=== PATIENT | male | born 1965 | race Caucasian/White ===

== ENCOUNTER 2017-02-15 18:55 | Emergency (ER) | payer BC, MEDICAID ==
[2017-02-15] MEDS ORDERED: cloNIDine 0.1 MG Tab PO ONE (19:18)
--- NOTE | 2017-02-15 19:26 | EDM.PDOC ---
ED HPI GENERAL MEDICAL PROBLEM - General Chief Complaint: General Stated Complaint: fatigue, light headed Time Seen by Provider: 02/15/17 18:55 Source of Information: Reports: Patient History Limitations: Reports: No Limitations - History of Present Illness INITIAL COMMENTS - FREE TEXT/NARRATIVE: According to patient he claims that he has been fatigued for close to a month or more. he claims he feels exhausted and tired all the time. 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 And feels very tired and sometimes loose sense of direction or time when he is driving. No constipation, no skin dryness. no nausea or vomting. No loss of appetite or weight. Pt claims he only sleep 5-6/hrs every night. His BP was well controlled and hence he decreased his lisinopril to 20mg daily from 40mg daily. But to keep him self alert and energetic he drinks Red bull, and snoozes on tobacco and drinks plenty of coke. today he drank a red bull about 1 hr before he came into emergency room and he has been feeling light headed and also tingling of the arms and hence concerned. No chest pain, shortness of breath, weakness in the extremities. No nausea or vomiting. - Related Data Allergies Allergy/AdvReac Type Severity Reaction Status Date / Time No Known Allergies Allergy Verified 01/06/15 16:35 Home Meds: Home Meds Fexofenadine [Greta] 180 mg PO DAILY PRN 01/06/15 [History] Lisinopril [Prinivil] 20 mg PO DAILY 01/06/15 [History] Sertraline HCl [Zoloft] 50 mg PO DAILY 01/06/15 [History] Past Medical History Other Dermatologic History: MRSA Social & Family History - Tobacco Use Smoking Status *Q: Never Smoker Second Hand Smoke Exposure: No - Alcohol Use Number of Drinks Per Day: 7 - Recreational Drug Use Recreational Drug Use: No - Living Situation & Occupation Living situation: Reports: Single Occupation: Unemployed ED ROS GENERAL - Review of Systems Review Of Systems: See Below Constitutional: Reports: Fatigue. Denies: Fever, Chills, Malaise, Weakness, Decreased Appetite, Weight Loss, Weight Gain HEENT: Denies: Eye Pain, Throat Pain, Throat Swelling, Vision Change Respiratory: Denies: Shortness of Breath, Wheezing, Cough, Sputum Cardiovascular: Reports: Blood Pressure Problem, Lightheadedness. Denies: Chest Pain, Syncope Endocrine: Reports: Fatigue GI/Abdominal: Denies: Abdominal Pain, Nausea, Vomiting : Denies: Dysuria, Flank Pain Musculoskeletal: Denies: Joint Pain, Joint Swelling Skin: Denies: Pruritis, Rash Neurological: Reports: Tingling. Denies: Confusion, Dizziness, Headache, Syncope, Tremors, Difficulty Walking, Weakness ED EXAM, GENERAL - Physical Exam Exam: See Below Exam Limited By: No Limitations General Appearance: Alert, WD/WN, No Apparent Distress, Anxious Eye Exam: Bilateral Eye: EOMI, PERRL Ears: Normal External Exam, Normal Canal, Hearing Grossly Normal, Normal TMs Ear Exam: Bilateral Ear: Auricle Normal, Canal Normal, TM normal Nose: Normal Inspection, Normal Mucosa, No Blood Throat/Mouth: Normal Inspection, Normal Lips, Normal Teeth, Normal Gums, Normal Oropharynx, Normal Voice, No Airway Compromise Head: Atraumatic, Normocephalic Neck: Normal Inspection, Supple, Non-Tender, Full Range of Motion Respiratory/Chest: No Respiratory Distress, Lungs Clear, Normal Breath Sounds, No Accessory Muscle Use, Chest Non-Tender Cardiovascular: Normal Peripheral Pulses, Regular Rate, Rhythm, No Edema, No Gallop, No JVD, No Murmur, No Rub Peripheral Pulses: 2+: Radial (L), Radial (R) GI/Abdominal: Normal Bowel Sounds, Soft, Non-Tender, No Organomegaly, No Distention, No Abnormal Bruit, No Mass Back Exam: Normal Inspection, Full Range of Motion, NT Extremities: Normal Inspection, Normal Range of Motion, Non-Tender, Normal Capillary Refill, No Pedal Edema Neurological: Alert, Oriented, CN II-XII Intact, Normal Cognition, Normal Gait, Normal Reflexes, No Motor/Sensory Deficits Course - Vital Signs Text/Narrative:: Pt claims that he has been fatigued for past month or more. His EKG is normal.His BP has been well controlled according to him, and he has decreased his lisinopril to 20mg and his pressure run around 130/80mmhg. But today his BP in the emergency room is 187/132mmhg and has lightheadedness, because of him drinking red bull 1 hr before he came into the emergency room. He did receive clonidine 0.1mg orally. His TSh is elevated at 5.52. Pt has hypothyroidism. I have started him on synthroid 25mcg daily. Advised to return to clinic in 4 wks for TSH recheck, His fatigue is multifactorial. he has high anxiety level, he has not been sleeping well( sleep 5 hrs or less every day). Also regarding his caffeine intake, he drinks coffee, coke and red bull all day. All these can cause his blood pressure to go up and also risk him to have cardiac or cerebro-vascular injury. which I have clearly explained to patient. My recommendation is to have good sleep hygiene( at least sleep 7-8 hrs daily. Drink healthy fluids for hydration. Avoid caffinated and high energy drinks. Medication and relaxation should help. Continue home meds . Followup in clinic in 4 weeks for recheck. Sooner if his BP does not improve. Last Recorded V/S: Last Vital Signs Temp 98.1 F 02/15/17 19:00 Pulse 67 02/15/17 20:08 Resp 20 02/15/17 19:00 BP 174/127 H 02/15/17 20:08 Pulse Ox 99 02/15/17 19:00 - Orders/Labs/Meds Orders: Active Orders 24 hr Category Date Time Status EKG Documentation Completion [RC] ASDIRECTED Care 02/15/17 19:18 Active Labs: Laboratory Tests 02/15/17 02/15/17 02/15/17 Range/Units 19:30 19:30 19:30 WBC 6.3 D (4.0-11.0) K/uL RBC 4.74 (4.50-6.50) M/uL Hgb 15.1 (13.0-18.0) g/dL Hct 42.9 (40.0-54.0) % MCV 91 (76-96) fL MCH 31.9 (27.0-32.0) pg MCHC 35.2 H (31.0-35.0) g/dL RDW 13.0 (11.0-16.0) % Plt Count 205 (150-400) K/uL MPV 11.2 H (6.0-10.0) fL Neut % (Auto) 55.9 (45.0-70.0) % Lymph % (Auto) 27.4 (20.0-40.0) % [place] % (Auto) 12.7 H (3.0-10.0) % Eos % (Auto) 2.9 (1.0-5.0) % Baso % (Auto) 1.1 H (0.0-0.5) % Neut # (Auto) 3.51 (2.00-7.50) K/uL Lymph # (Auto) 1.72 (1.50-4.00) K/uL [place] # (Auto) 0.80 (0.20-0.80) K/uL Eos # (Auto) 0.18 (0.04-0.40) K/uL Baso # (Auto) 0.07 (0.02-0.10) K/uL Sodium 141 (136-145) mmol/L Potassium 3.7 (3.5-5.1) mmol/L Chloride 105 (98-107) mmol/L Carbon Dioxide 28.7 (21.0-32.0) mmol/L Anion Gap 11.0 (5.0-15.0) mmol/L BUN 16 (8-26) mg/dL Creatinine 1.03 (0.70-1.30) mg/dL Est Cr Clr Drug Dosing TNP Estimated GFR (MDRD) > 60 (>60) MLS/MIN BUN/Creatinine Ratio 15.5 (6-25) Glucose 87 (74-100) mg/dL Calcium 9.1 (8.5-10.1) mg/dL Total Bilirubin 0.4 D (0.0-1.0) mg/dL AST 34 (15-37) U/L ALT 46 (12-78) U/L Alkaline Phosphatase 53 (46-116) U/L Total Protein 7.5 (6.4-8.2) g/dL Albumin 4.2 (3.4-5.0) g/dL Globulin 3.3 (2.2-4.2) g/dL Albumin/Globulin Ratio 1.3 (0.8-2.0) TSH, Ultra Sensitive 5.520 H D (0.358-3.740) uIU/mL Meds: Medications Discontinued Medications Generic Name Dose Route Start Last Admin Trade Name Freq PRN Reason Stop Dose Admin Clonidine HCl 0.1 mg 02/15/17 19:18 02/15/17 19:26 Catapres PO 02/15/17 19:19 0.1 mg ONETIME ONE Administration Departure - Departure Time of Disposition: 20:30 Disposition: Home, Self-Care 01 Condition: Good Clinical Impression: Lightheadedness, Elevated blood pressure, situational, Hypothyroidism - Discharge Information Instructions: Levothyroxine tablets, Hypothyroidism Forms: ED Department Discharge Additional Instructions: Pt claims that he has been fatigued for past month or more. His EKG is normal.His BP has been well controlled according to him, and he has decreased his lisinopril to 20mg and his pressure run around 130/80mmhg. But today his BP in the emergency room is 187/132mmhg and has lightheadedness, because of him drinking red bull 1 hr before he came into the emergency room. He did receive clonidine 0.1mg orally. His TSh is elevated at 5.52. Pt has hypothyroidism. I have started him on synthroid 25mcg daily. Advised to return to clinic in 4 wks for TSH recheck, His fatigue is multifactorial. he has high anxiety level, he has not been sleeping well( sleep 5 hrs or less every day). Also regarding his caffeine intake, he drinks coffee, coke and red bull all day. All these can cause his blood pressure to go up and also risk him to have cardiac or cerebro-vascular injury. which I have clearly explained to patient. My recommendation is to have good sleep hygiene( at least sleep 7-8 hrs daily. Drink healthy fluids for hydration. Avoid caffinated and high energy drinks. Medication and relaxation should help. Continue home meds . Followup in clinic in 4 weeks for recheck. Sooner if his BP does not improve. - Problem List & Annotations (1) Elevated blood pressure, situational SNOMED Code(s): 18319690 Code(s): R03.0 - ELEVATED BLOOD-PRESSURE READING, W/O DIAGNOSIS OF HTN Status: Acute (2) Lightheadedness SNOMED Code(s): 531360518 Code(s): R42 - DIZZINESS AND GIDDINESS Status: Acute (3) Hypothyroidism SNOMED Code(s): 46184711 Code(s): E03.9 - HYPOTHYROIDISM, UNSPECIFIED Status: Acute - Problem List Review Problem List Initiated/Reviewed/Updated: Yes - My Orders Last 24 Hours: My Active Orders 02/15/17 19:18 EKG Documentation Completion [RC] ASDIRECTED - Assessment/Plan Last 24 Hours: My Active Orders 02/15/17 19:18 EKG Documentation Completion [RC] ASDIRECTED Assessment:: Elevated blood pressure from consumption of red bull. Lightheadedness Hypothyroidism Plan: Pt claims that he has been fatigued for past month or more. His EKG is normal.His BP has been well controlled according to him, and he has decreased his lisinopril to 20mg and his pressure run around 130/80mmhg. But today his BP in the emergency room is 187/132mmhg and has lightheadedness, because of him drinking red bull 1 hr before he came into the emergency room. He did receive clonidine 0.1mg orally. His TSh is elevated at 5.52. Pt has hypothyroidism. I have started him on synthroid 25mcg daily. Advised to return to clinic in 4 wks for TSH recheck, His fatigue is multifactorial. he has high anxiety level, he has not been sleeping well( sleep 5 hrs or less every day). Also regarding his caffeine intake, he drinks coffee, coke and red bull all day. All these can cause his blood pressure to go up and also risk him to have cardiac or cerebro-vascular injury. which I have clearly explained to patient. My recommendation is to have good sleep hygiene( at least sleep 7-8 hrs daily. Drink healthy fluids for hydration. Avoid caffinated and high energy drinks. Medication and relaxation should help. Continue home meds . Followup in clinic in 4 weeks for recheck. Sooner if his BP does not improve.
[2017-02-15] MEDS ORDERED: Levothyroxine 25 MCG Tab ONE (20:00)
[2017-02-15 21:00] VITALS: BP 153/117
== END 2017-02-15 20:45 | disposition home or self-care (01) ==
LOC: LB.ED 18:55
DX: R42 Dizziness and giddiness (principal); E03.9 Hypothyroidism, unspecified; R03.0 Elevated blood-pressure reading, without diagnosis of hypertension; Z79.899 Other long term (current) drug therapy
CPT/HCPCS: 36415; 80053; 84443; 85025; 93005; 99283; A9270

== ENCOUNTER 2017-02-21 19:02 | Emergency (ER) | payer BC, MEDICAID ==
[2017-02-21] MEDS ORDERED: Diphtheria,Pertussis(Acell),Tetanus Vaccine 0.5 ML SDV inactive IM ONE ×2 (19:44→20:07)
[2017-02-21] MEDS ORDERED: Amoxicillin/Clavulanate K 875-125 MG Tab ONE (19:45)
--- NOTE | 2017-02-21 20:13 | EDM.PDOC ---
ED HPI GENERAL MEDICAL PROBLEM - General Chief Complaint: Laceration Stated Complaint: LACERATION Time Seen by Provider: 02/21/17 19:15 Source of Information: Reports: Patient History Limitations: Reports: No Limitations - History of Present Illness INITIAL COMMENTS - FREE TEXT/NARRATIVE: According to patient he was trying to winterise his boat,and was using a screwdriver and sustained a puncture wound to the right hand between the thumb and index finger few minutes ago. the base of the thumb is bruised and swollen. Able to move the thumb and is able to make a fist. he is not sure of his Tetanus shot. No other complaints or injury. Onset: Today Onset Date: 02/21/17 Onset Time: 18:30 - Related Data Allergies Allergy/AdvReac Type Severity Reaction Status Date / Time No Known Allergies Allergy Verified 01/06/15 16:35 Home Meds: Home Meds Lisinopril [Prinivil] 20 mg PO DAILY 01/06/15 [History] ARIPiprazole [Abilify] 5 mg PO DAILY 02/21/17 [History] Levothyroxine [Levothyroxine] 25 mcg PO DAILY 02/21/17 [History] Terbinafine [LamISIL] 250 mg PO DAILY 02/21/17 [History] Past Medical History Psychiatric History: Reports: Depression Endocrine/Metabolic History: Reports: Hypothyroidism Other Dermatologic History: MRSA Social & Family History - Tobacco Use Smoking Status *Q: Never Smoker Second Hand Smoke Exposure: No - Alcohol Use Number of Drinks Per Day: 7 - Recreational Drug Use Recreational Drug Use: No - Living Situation & Occupation Living situation: Reports: Single Occupation: Unemployed ED ROS GENERAL - Review of Systems Review Of Systems: See Below Constitutional: Reports: Fatigue (due to hypothyroidism). Denies: Fever, Chills HEENT: Denies: Rhinitis, Throat Pain Respiratory: Denies: Cough, Sputum Cardiovascular: Denies: Chest Pain, Lightheadedness GI/Abdominal: Denies: Abdominal Pain, Nausea, Vomiting Musculoskeletal: Denies: Joint Pain, Joint Swelling, Muscle Pain, Muscle Stiffness Skin: Reports: Bruising. Denies: Pruritis, Rash ED EXAM, SKIN/RASH Exam: See Below Exam Limited By: No Limitations General Appearance: Alert, WD/WN, No Apparent Distress Eye Exam: Bilateral Eye: EOMI, PERRL Ears: Normal External Exam, Normal Canal, Hearing Grossly Normal, Normal TMs Nose: Normal Inspection, Normal Mucosa, No Blood Throat/Mouth: Normal Inspection, Normal Lips, Normal Teeth, Normal Gums, Normal Oropharynx, Normal Voice, No Airway Compromise Head: Atraumatic, Normocephalic Neck: Normal Inspection, Supple, Non-Tender, Full Range of Motion Respiratory/Chest: No Respiratory Distress, Lungs Clear, Normal Breath Sounds, No Accessory Muscle Use, Chest Non-Tender Cardiovascular: Normal Peripheral Pulses, Regular Rate, Rhythm, No Edema, No Gallop, No JVD, No Murmur, No Rub Extremities: Other (Left hand: There is a puncture wound over the first websapce of the hand. there is swelling over the thenar eminence. Able to make a fist . ) Course - Vital Signs Text/Narrative:: There is a hemostatic puncture wound over the left hand. There is no bleeding. There is soft tissue swelling and bruising. The wound was cleaned and simple dressing done. Tdap given. As this is a deep puncture wound of the hand, I have empirically covered with augmentin for 10 days. Wound care discussed. Followup in clinic if infection, pain or symptoms worsen. Last Recorded V/S: Last Vital Signs Temp 98 F 02/21/17 19:26 Pulse 78 02/21/17 19:26 Resp 20 02/21/17 19:26 BP 192/136 H 02/21/17 19:26 Pulse Ox 98 02/21/17 19:26 - Orders/Labs/Meds Orders: Active Orders 24 hr Category Date Time Status Vaccines to be Administered [RC] PER UNIT ROUTINE Care 02/21/17 19:44 Active Meds: Medications Discontinued Medications Generic Name Dose Route Start Last Admin Trade Name Freq PRN Reason Stop Dose Admin Diphtheria/Tetanus/Acell Pertussis 0.5 ml 02/21/17 19:44 Boostrix IM 02/21/17 19:45 .ONCE ONE Departure - Departure Time of Disposition: 19:45 Disposition: Home, Self-Care 01 Condition: Good Clinical Impression: Puncture wound of left hand - Discharge Information Instructions: Amoxicillin; Clavulanic Acid tablets, Puncture Wound, VIS, Tetanus, Diphtheria, and Pertussis (Tdap) - CDC Referrals: PCP,None [Primary Care Provider] - Forms: ED Department Discharge - Problem List & Annotations (1) Puncture wound of left hand SNOMED Code(s): 877823304 Code(s): S61.432A - PUNCTURE WOUND W/O FOREIGN BODY OF LEFT HAND, INIT ENCNTR Status: Acute Current Visit: Yes - Problem List Review Problem List Initiated/Reviewed/Updated: Yes - My Orders Last 24 Hours: My Active Orders 02/21/17 19:44 Vaccines to be Administered [RC] PER UNIT ROUTINE - Assessment/Plan Last 24 Hours: My Active Orders 02/21/17 19:44 Vaccines to be Administered [RC] PER UNIT ROUTINE Assessment:: Puncture wound of left hand Plan: There is a hemostatic puncture wound over the left hand. There is no bleeding. There is soft tissue swelling and bruising. The wound was cleaned and simple dressing done. Tdap given. As this is a deep puncture wound of the hand, I have empirically covered with augmentin for 10 days. Wound care discussed. Followup in clinic if infection, pain or symptoms worsen.
[2017-02-21 20:28] VITALS: BP 177/122
== END 2017-02-21 20:00 | disposition home or self-care (01) ==
LOC: LB.ED 19:02
DX: S61.432A Puncture wound without foreign body of left hand, initial encounter (principal); F32.9 Major depressive disorder, single episode, unspecified; E03.9 Hypothyroidism, unspecified; Z79.899 Other long term (current) drug therapy; Z23 Encounter for immunization
CPT/HCPCS: 90471; 90715; 99283; A9270

== ENCOUNTER 2018-07-02 21:03 | Emergency (ER) | payer BC, OTHER ==
[2018-07-02 21:33] VITALS: BP 141/89
[2018-07-02] MEDS ORDERED: Diphtheria,Pertussis(Acell),Tetanus Vaccine 0.5 ML SDV inactive IM ONE (21:49)
[2018-07-02] MEDS ORDERED: Lidocaine 2% with EPINEPHrine 1:100,000 20 ML MDV ONE (21:50)
--- NOTE | 2018-07-02 21:55 | EDM.PDOC ---
ED HPI GENERAL MEDICAL PROBLEM - General Chief Complaint: Laceration Stated Complaint: Laceration Time Seen by Provider: 07/02/18 21:20 Source of Information: Reports: Patient History Limitations: Reports: No Limitations - History of Present Illness INITIAL COMMENTS - FREE TEXT/NARRATIVE: According to patient he was moving a dumpster and hit hit head against the dumpster side and sustained a scalp laceration, which has been bleeding.Happened around 8 PM today. no loss of consciousness. mild headache around the area of laceration. No nausea or vomiting. Pt's last tetanus was in 2002. Onset: Today Onset Date: 07/02/18 Onset Time: 20:00 Location: Reports: Head Quality: Reports: Ache Severity: Mild Improves with: Reports: None Worsens with: Reports: None Associated Symptoms: Denies: Confusion, Chest Pain, Cough, Diaphoresis, Fever/ Chills, Headaches, Nausea/Vomiting, Rash, Seizure, Shortness of Breath, Syncope , Weakness - Related Data Allergies Allergy/AdvReac Type Severity Reaction Status Date / Time No Known Allergies Allergy Verified 01/06/15 16:35 Home Meds: Home Meds Lisinopril [Prinivil] 20 mg PO DAILY 01/06/15 [History] amLODIPine Besylate [Amlodipine Besylate] 1 tab PO DAILY 07/02/18 [History] Past Medical History Psychiatric History: Reports: Depression Endocrine/Metabolic History: Reports: Hypothyroidism Other Dermatologic History: MRSA Social & Family History - Tobacco Use Smoking Status *Q: Unknown Ever Smoked Second Hand Smoke Exposure: No - Caffeine Use Caffeine Use: Reports: Coffee - Recreational Drug Use Recreational Drug Use: No - Living Situation & Occupation Living situation: Reports: Single Occupation: Unemployed ED ROS GENERAL - Review of Systems Review Of Systems: See Below Constitutional: Denies: Fever, Chills HEENT: Denies: Ear Pain, Rhinitis, Throat Pain, Throat Swelling Respiratory: Denies: Shortness of Breath, Pleuritic Chest Pain, Cough, Sputum Cardiovascular: Denies: Chest Pain, Lightheadedness GI/Abdominal: Denies: Abdominal Pain, Nausea, Vomiting Musculoskeletal: Denies: Joint Pain, Joint Swelling Skin: Denies: Pruritis, Rash, Erythema Neurological: Denies: Confusion, Dizziness, Headache, Numbness, Tingling, Tremors, Weakness, Gait Disturbance ED EXAM, SKIN/RASH Exam: See Below Exam Limited By: No Limitations General Appearance: Alert, WD/WN, No Apparent Distress Eye Exam: Bilateral Eye: EOMI, PERRL Ears: Normal External Exam, Normal Canal, Hearing Grossly Normal, Normal TMs Nose: Normal Inspection, Normal Mucosa, No Blood Throat/Mouth: Normal Inspection, Normal Lips, Normal Teeth, Normal Gums, Normal Oropharynx, Normal Voice, No Airway Compromise Head: Normocephalic, Other (There is a 3 cm scalp laceration. actively bleeding. does not extend into aponeurosis.). No: Facial Swelling, Facial Tenderness Neck: Normal Inspection, Supple, Non-Tender, Full Range of Motion Respiratory/Chest: No Respiratory Distress, Lungs Clear, Normal Breath Sounds, No Accessory Muscle Use, Chest Non-Tender Cardiovascular: Normal Peripheral Pulses, Regular Rate, Rhythm, No Edema, No Gallop, No JVD, No Murmur, No Rub Neurological: Alert, Oriented, CN II-XII Intact, Normal Cognition, Normal Gait, Normal Reflexes, No Motor/Sensory Deficits Skin: Warm ED SKIN PROCEDURES - Laceration/Wound Repair Head Lac/Wound length In cm: 3 (over the vertex) Appearance: Linear Distal NVT: Neuro [facility] Vascular Intact Local Anesthesia - Lidocaine (Xylocaine): 0.5% with EPI Local Anesthetic Volume: 2cc Skin Prep: Providone-Iodine (Betadine) Exploration/Debridement/Repair: Wound Explored Closed with: [place] # of Sutures: 5 Sterile Dressing Applied: Provider Tetanus Status Addressed: Yes Complications: No Course - Vital Signs Text/Narrative:: Pt reassured that he has a scalp laceration, mildly gaping and bleeding. After consent was obtained. the wound closed with bradford under aseptic precautions. Wound care discussed. staple removal in 7 days. Head injury signs discussed, if he develops return to emergency room ANNIKA. Other chou followup in clinic in 1 wk for suture removal. Last Recorded V/S: Last Vital Signs Temp 97.3 F 07/02/18 21:34 Pulse 78 07/02/18 21:34 Resp 16 07/02/18 21:34 BP 141/89 H 07/02/18 21:34 Pulse Ox 97 07/02/18 21:34 Departure - Departure Time of Disposition: 19:50 Disposition: Home, Self-Care 01 Condition: Good Clinical Impression: Scalp laceration - Discharge Information *PRESCRIPTION DRUG MONITORING PROGRAM REVIEWED*: Not Applicable *COPY OF PRESCRIPTION DRUG MONITORING REPORT IN PATIENT KLARISSA: Not Applicable - Problem List & Annotations (1) Scalp laceration SNOMED Code(s): 901649550 Code(s): S01.01XA - LACERATION WITHOUT FOREIGN BODY OF SCALP, INITIAL ENCOUNTER Status: Acute Current Visit: Yes - Problem List Review Problem List Initiated/Reviewed/Updated: Yes - Assessment/Plan Assessment:: Scalp laceration Plan: Pt reassured that he has a scalp laceration, mildly gaping and bleeding. After consent was obtained. the wound closed with bradford under aseptic precautions. Wound care discussed. staple removal in 7 days. Head injury signs discussed, if he develops return to emergency room ANNIKA. Other chou followup in clinic in 1 wk for suture removal.
== END 2018-07-02 21:53 | disposition home or self-care (01) ==
LOC: LB.ED 21:03
DX: S01.01XA Laceration without foreign body of scalp, initial encounter (principal); Z23 Encounter for immunization; Z79.899 Other long term (current) drug therapy; Z86.14 Personal history of Methicillin resistant Staphylococcus aureus infection
CPT/HCPCS: 12002; 90471; 90715; 99282-25

== ENCOUNTER 2020-04-08 20:02 | Emergency (ER) | payer SELFPAY ==
--- NOTE | 2020-04-08 20:34 | ER ---
HISTORY OF PRESENT ILLNESS: A 54-year-old male who comes in after sustaining a laceration just below the right kneecap. He states that he bumped hard into a corner of an aluminum trailer. The patient states he is able to walk. He cleaned it up some at home and was concerned that he may be hit a tendon. He saw a little bit of yellowish whitish material on 1 part of the cut. The site did bleed for a couple of minutes, but by holding pressure to it, it did stop the bleeding. The patient is current on his tetanus. He denies any numbness or tingling distal to the knee and states he has full use and is able to bear weight without any discomfort. OBJECTIVE: GENERAL APPEARANCE: The patient is awake and alert. No obvious distress. VITAL SIGNS: Reviewed as listed. EXTREMITIES: Examining the right knee reveals a small laceration just distal to the patella on the right knee. It measures about 1.5 cm and it seems to have been almost an avulsion-type injury, going from medial to lateral. It goes a part way through the epidermis, and the yellowish whitish material is a little bit of fat that curled up on the 1 spot that would only be about a 0.5 cm in size. It is not through the epidermis and is not deep enough to involve the tendon. DIAGNOSIS: Laceration to right knee. TREATMENT PLAN: Nursing staff will once again cleanse the knee and apply dressing. He is to keep it covered for several days. Monitoring closely for infection. [id number] medications should be used as needed for pain control, and followup is p.r.n. BASILIA/MARY BETH /[id number]
[2020-04-08 20:37] VITALS: BP 149/100; PULSE 67
== END 2020-04-08 20:30 | disposition home or self-care (01) ==
LOC: LB.ED 20:02
DX: S81.811A Laceration without foreign body, right lower leg, initial encounter (principal); W22.8XXA Striking against or struck by other objects, initial encounter; Y92.009 Unspecified place in unspecified non-institutional (private) residence as the place of occurrence of the external cause
CPT/HCPCS: 99282

== ENCOUNTER 2021-06-12 22:57 | Emergency (ER) | payer OTHER ==
--- NOTE | 2021-06-12 23:37 | EDM.PDOC ---
ED HPI GENERAL MEDICAL PROBLEM - General Chief Complaint: Upper Extremity Injury/Pain Stated Complaint: Crushed L Hand Time Seen by Provider: 06/12/21 23:15 Source of Information: Reports: Patient History Limitations: Reports: No Limitations - History of Present Illness INITIAL COMMENTS - FREE TEXT/NARRATIVE: 35-year-old male presents to the ED complaining of left hand pain and swelling secondary to dropping a outboard motor on it. This happened on Tuesday and was looking better but approximately 6 hours ago patient's hand began to swell and become hot to the touch with increased pain. Patient has a history of MRSA for which she has a standing prescription for Bactrim. Patient started the Bactrim today. 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 Patient is also concerned that he may have used CBD oil caused an issue with his skin. No other complaints. Patient denies chest pain, shortness of breath nausea vomiting, fever, dizzy lightheaded, syncope/near syncope. - Related Data Allergies Allergy/AdvReac Type Severity Reaction Status Date / Time No Known Allergies Allergy Verified 10/06/20 09:21 Home Meds: Home Meds Lisinopril [Prinivil] 20 mg PO DAILY 01/06/15 [History] amLODIPine Besylate [Amlodipine Besylate] 1 tab PO DAILY 07/02/18 [History] Past Medical History Cardiovascular History: Reports: Hypertension Psychiatric History: Reports: Depression Endocrine/Metabolic History: Reports: Hypothyroidism Other Dermatologic History: MRSA - Infectious Disease History Infectious Disease History: Reports: Chicken Pox Social & Family History - Family History Family Medical History: No Pertinent Family History - Caffeine Use Caffeine Use: Reports: Coffee - Living Situation & Occupation Living situation: Reports: Single Occupation: Unemployed Review of Systems - Review of Systems Review Of Systems: Comprehensive ROS is negative, except as noted in HPI. Reason Not Obtained: Limited exam to left arm distal to the elbow. ED EXAM, GENERAL - Physical Exam Exam: See Below Free Text/Narrative:: ABC intact. No apparent distress. No obvious trauma. Speaking in full sentences. Alert and oriented x3, GCS 456. Left arm distal to the elbow: Patient has erythema and edema on the dorsal aspect of the left hand and wrist. With increased heat on palpation. Patient has CMS intact beyond injury. There is a small break in the skin on the third digit on the dorsal aspect. Patient is unable to make a tight fist. Pain on palpation no obvious crepitus. General Appearance: Alert, WD/WN, No Apparent Distress Respiratory/Chest: No Respiratory Distress, Lungs Clear, Normal Breath Sounds, No Accessory Muscle Use, Chest Non-Tender Cardiovascular: Normal Peripheral Pulses, Regular Rate, Rhythm, No Edema, No Gallop, No JVD, No Murmur, No Rub Extremities: Joint Swelling, Increased Warmth, Redness, Other Neurological: Alert, Oriented, Normal Cognition Psychiatric: Normal Affect, Normal Mood Skin Exam: Warm, Dry, Intact, Normal Color, No Rash Departure - Departure Time of Disposition: 00:30 Disposition: Home, Self-Care 01 Condition: Good Clinical Impression: Cellulitis Qualifiers: Site of cellulitis: extremity Site of cellulitis of extremity: upper extremity Laterality: left Qualified Code(s): L03.114 - Cellulitis of left upper limb - Discharge Information *PRESCRIPTION DRUG MONITORING PROGRAM REVIEWED*: No *COPY OF PRESCRIPTION DRUG MONITORING REPORT IN PATIENT KLARISSA: No Instructions: Cellulitis, Adult - Assessment/Plan Assessment:: 55-year-old male presents for evaluation of skin redness/heat/pain as detailed above. History and physical exam are consistent with cellulitis. There does not appear to be any complication of cellulitis such as necrotizing fasciitis, lymphangitis lymph adenitis, abscess, osteomyelitis, or sepsis. The patient has not immunocompromised. Alberto for supportive outpatient management includes antibiotics. Close follow-up with primary care physician to ensure no progression and rapid resolution. Cellulitis precautions for home were given. Patient's dorsal surface of left hand and wrist was outlined with permanent marker. -Patient and/or patient financial representative understood and agreed to treatment plan. -All questions were answered to the patient's satisfaction. -Patient is discharged in stable condition. Patient to return to the ED if symptoms increase. Follow-up with primary care provider within 1 week Plan: Airway breathing circulation, history, exam, imaging, patient education/shared decision-making, ambulatory prescription for Bactrim twice daily for 10 days. -Patient and/or patient financial representative understood and agreed to treatment plan. -All questions were answered to the patient's satisfaction. -Patient is discharged in stable condition. Patient to return to the ED if symptoms increase. Follow-up with primary care provider within 1 week
[2021-06-12] MEDS ORDERED: Sulfamethoxazole/Trimethoprim 800-160 MG Tab ONE (23:50)
[2021-06-13 03:19] VITALS: BP 159/101; PULSE 84
--- NOTE | 2021-06-14 19:33 | CR ---
Date of Service: 06/12/21 Clinical Data: Hand injury LEFT HAND: No acute fracture or dislocation. No lytic or blastic bone lesions. [id number] [facility]
== END 2021-06-13 00:30 | disposition home or self-care (01) ==
LOC: LB.ED 22:57
DX: L03.114 Cellulitis of left upper limb (principal); I10 Essential (primary) hypertension; Z79.899 Other long term (current) drug therapy
CPT/HCPCS: 73130; 99283; A9270